=== PATIENT | male | born 1985 ===

== ENCOUNTER 2024-07-01 11:19 | Emergency (ER) | payer SELFPAY ==
[2024-07-01] MEDS ORDERED: Ketorolac 60 MG/2 ML SDV IM ONE (13:32)
[2024-07-01 13:33] VITALS: BP 142/94; PULSE 84
[2024-07-01] MEDS: Ibuprofen 800 MG Tab PO ONE (13:58)
== END 2024-07-01 13:59 | disposition home or self-care (01) ==
LOC: JD.ED 11:19
DX: S82.832A Other fracture of upper and lower end of left fibula, initial encounter for closed fracture (principal); V18.4XXA Pedal cycle driver injured in noncollision transport accident in traffic accident, initial encounter; Y93.55 Activity, bike riding
CPT/HCPCS: 73610; 73630; 99283; A9270